=== PATIENT | male | born 1950 | race Caucasian/White ===

== ENCOUNTER 2019-06-06 06:21 | Emergency (ER) | payer MEDICARE ==
[2019-06-06] MEDS ORDERED: Acetaminophen 500 MG TAB ONE (07:34)
[2019-06-06] MEDS ORDERED: Ketorolac Tromethamine 30 MG/ML VIAL ONE (07:34)
--- NOTE | 2019-06-06 07:50 | RAD ---
RADIOGRAPH RIGHT SHOULDER 3 VIEWS: DATE: 06/06/2019. TIME: 6:48 AM. HISTORY: A 68-year-old male with acute traumatic right shoulder pain. FINDINGS: Within the rib cage, there is an approximately 9 x 8.5 x 6 cm well-circumscribed pleural-based upper lobe lung mass, containing small focal lucencies that could represent cavitations. There is a possib le second mass, this one with much more irregular margins, located inferior and medial to the first m ass broadly abutting the right mediastinum. There is no fracture or dislocation. Mild DJD at glenohumeral joint. Mild to moderate DJD at AC all nt. IMPRESSION: 1. Pleural-based large right upper lobe pulmonary mass with possible cavitation, and adjacent lesion at right mediastinum. Recommend chest CT (preferably with IV contrast unless contraindicated). 2. No fracture of the right shoulder. CODE T POS: JIN
[2019-06-06 07:56] LABS: ALT (SGPT) 12 U/L (8-55); AST (SGOT) 12 U/L (5-34); Albumin 4.1 g/dL (3.4-4.8); Alkaline Phosphatase 109 U/L (40-110); Anion Gap 14 mmol/L (10-20); BUN (Urea Nitrogen) 12 mg/dL (8.4-25.7); Band 6 % (5-11); Bilirubin, Total 0.4 mg/dL (0.2-1.2); Calc. Creatinine Clearance 0 mL/min (70-130); Calcium 11.6 mg/dL (7.8-10.44); Carbon Dioxide 27 mmol/L (23-31); Chloride 100 mmol/L (98-107); Eosinophils 3 % (0-10); Estimated GFR-MDRD 86; Glucose 123 mg/dL (80-115); Hemoglobin 11.9 g/dL (14.0-18.0); Lymphocytes 11 % (21-51); MDiff Complete? YES; Mean Corpuscular HGB CONC 32.7 g/dL (32.0-36.0); Mean Corpuscular Hemoglobin 26.1 pg (27.0-31.0); Mean Corpuscular Volume 79.7 fL (78.0-98.0); Mean Platelet Volume 6.2 fL (7.4-10.4); Monocytes 6 % (0-10); Neutrophil 74 % (42-75); Platelet Count 757 thou/uL (130-400); Platelet Morphology Comment Appears Increased; Protein, Total 8.1 g/dL (5.8-8.1); RBC Distribution Width 13.8 % (11.5-14.5); Red Blood Cell (RBC) Count 4.57 mill/uL (4.70-6.10); Sodium 137 mmol/L (136-145); White Blood Cell (WBC) Count 29.8 thou/uL (4.8-10.8)
[2019-06-06] MEDS ORDERED: Iopamidol 370 76% 100 ML VIAL ONE (09:00)
--- NOTE | 2019-06-06 09:57 | CT ---
CT THORAX WITH CONTRAST: DATE: 06/06/2019 TIME: 0829 HOURS HISTORY: 68-year-old male with right lung mass incidentally found on right shoulder radiograph. COMPARISON: None. TECHNIQUE: IV iodinated contrast media: 100 mL [id number]. FINDINGS: In the right upper lobe, there is an approximately 6.5 x 6.5 x 4.5 cm mass with heterogeneous attenua tion (intermediate soft tissue density and necrotic fluid densities), plus cavitation, broadly abutti ng the anterolateral pleural surface. The adjacent anterolateral aspect of the right second rib has a permeative appearance consistent with infiltration by the tumor. There is soft tissue thickening of the adjacent lateral portion of the chest wall just superficial to the pleural based mass. Partially contacting this mass, there is another mass with very irregular margins and similar attenua tion at the right hilum, abutting the right mediastinum. This second mass measures approximately 6 x 3.5 x 4.5 cm, and mildly extrinsically compresses and narrows the lower portion of the superior vena cava. It circumferentially surrounds and severely narrows the right upper lobe pulmonary artery, whic h is not visualized beyond its proximal 2 cm from its origin. There are multifocal very irregularly shaped small nodular infiltrates in the right upper lobe, both in the anterior segment and apical segment. There are multiple biapical blebs and bullae. No pleural effusion. Bilateral lower lobes and left upper lobe are clear of infiltrate and mass. No t horacic aortic aneurysm or dissection. No cardiomegaly or pericardial effusion. There is an approximately 5.5 x 3.5 x 6.5 cm right adrenal mass with heterogeneous attenuation simila r to that of the above mentioned right lung masses. Cyst in left lobe of liver. No splenomegaly. IMPRESSION: 1. 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 2. Large right upper lobe lateral pleural based necrotic neoplastic tumor mass with direct invasion of right second rib and right chest wall musculature. This is amenable to CT guided percutaneous biop sy. 3. Right upper hilar malignant neoplastic tumor mass component. 4. Large, necrotic right adrenal metastasis. 5. The right upper hilar tumor mass component surrounds and severe narrows, and possibly occludes, t he right upper lobe pulmonary artery. 6. Multifocal right upper lobe small nodular infiltrates. 7. Paraseptal emphysema. CODE T. DALTON Larson POS: ARIANNE
[2019-06-06] MEDS ORDERED: Ondansetron PF 4 MG/2 ML Vial ONE (11:06)
[2019-06-06] MEDS ORDERED: Morphine 4 MG/ML VIAL ONE (11:06)
== END 2019-06-06 11:16 | disposition short-term general hospital (02) ==
LOC: NAV ERS 06:21
DX: J98.59 Other diseases of mediastinum, not elsewhere classified (principal); R91.8 Other nonspecific abnormal finding of lung field; B19.10 Unspecified viral hepatitis B without hepatic coma; B19.20 Unspecified viral hepatitis C without hepatic coma; Z87.891 Personal history of nicotine dependence
CPT/HCPCS: 71270; 73030; 80053; 83605; 85025; 87040; 96374; 96375; 99285; J1885; J2270; J2405; Q9967; 36415

== ENCOUNTER 2023-12-22 11:53 | Emergency (ER) | payer OTHER, MEDICARE ==
[2023-12-22] MEDS ORDERED: fentaNYL 50 mcg/mL 1 mL Vial ONE (13:43)
[2023-12-22 13:48] LABS: #Basophils 0.1 thou/uL (0.0-0.2); #Eosinophils 0.1 thou/uL (0.0-0.7); #Monocytes 0.6 thou/uL (0.11-0.59); #Neutrophils 5.6 thou/uL (1.40-6.50); %Basophils 1.1 % (0.0-1.0); %Eosinophils 1.7 % (0.0-10.0); %Lymphocytes 23.9 % (21.0-51.0); %Monocytes 7.2 % (0.0-10.0); %Neutrophils 66.1 % (42.0-75.0); Hematocrit 39.9 % (42.0-52.0); Hemoglobin 12.5 g/dL (14.0-18.0); Mean Corpuscular HGB CONC 31.3 g/dL (32.0-36.0); Mean Corpuscular Hemoglobin 25.5 pg (27.0-31.0); Mean Corpuscular Volume 81.3 fl (78.0-98.0); Mean Platelet Volume 7.2 fL (7.4-10.4); Platelet Count 488 10x3/uL (130-400); RBC Distribution Width 15.5 % (11.5-14.5); Red Blood Cell (RBC) Count 4.91 mill/uL (4.70-6.10); White Blood Cell (WBC) Count 8.4 10x3/uL (4.8-10.8)
[2023-12-22 14:02] LABS: ALT (SGPT) 24 U/L (8-55); AST (SGOT) 23 U/L (5-34); Albumin 3.9 g/dL (3.4-4.8); Alkaline Phosphatase 84 U/L (40-110); Anion Gap 13 mmol/L (10-20); BUN (Urea Nitrogen) 12 mg/dL (8.4-25.7); Bilirubin, Total 0.8 mg/dL (0.2-1.2); Calc. Creatinine Clearance 0 mL/min (70-130); Calcium 9.6 mg/dL (7.8-10.44); Carbon Dioxide 26 mmol/L (23-31); Chloride 99 mmol/L (98-107); Estimated GFR 93; Globulin 3.4 g/dL (2.4-3.5); Glucose 151 mg/dL (83-110); Potassium 3.6 mmol/L (3.5-5.1); Protein, Total 7.3 g/dL (5.8-8.1); Sodium 134 mmol/L (136-145)
[2023-12-22] MEDS ORDERED: HYDROcodone/Acetaminophen 5/325 mg Tablet ONE (15:11)
== END 2023-12-22 15:40 | disposition home or self-care (01) ==
LOC: NAV ERS 11:53
DX: S82.142A Displaced bicondylar fracture of left tibia, initial encounter for closed fracture (principal); V44.6XXA Car passenger injured in collision with heavy transport vehicle or bus in traffic accident, initial encounter; Y93.89 Activity, other specified; Z87.891 Personal history of nicotine dependence
CPT/HCPCS: 80053; 85025; 96374; J3010